=== PATIENT | female | born 1990 | race African-American/Black ===

== ENCOUNTER 2017-07-05 12:34 | Emergency (ER) | payer OTHER ==
[2017-07-05 12:49] VITALS: TEMP 98.1; BMI 34.0
--- NOTE | 2017-07-05 13:28 | PDOC ---
History of Present Illness - General Chief Complaint: Rectal Bleed Stated Complaint: RECTAL BLEED Time Seen by Provider: 07/05/17 13:12 History Source: Patient Exam Limitations: No Limitations - History of Present Illness Initial Comments: 07/05/17 13:23 Patient is a [27-year-old female, no significant medical history currently on no medication. Presents after having a mucous bowel movement this morning with dark streaks which appeared to be blood. No other incidents after. No blood in toilet or on paper. Patient denies any abdominal pain, no vaginal discharge or cramping. Denies any urinary symptoms. No nausea or vomiting.] Past Medical History: [Denies]. Allergies: No known allergies Medications: [none] Family History: Non-contributory Social History: Denies smoking, alcohol use, or IVDU Review of Systems GENERAL/CONSTITUTIONAL: [No fever or chills. No weakness. No weight change.] HEAD, EYES, EARS, NOSE AND THROAT: [No change in vision. No ear pain or discharge. No sore throat. ] CARDIOVASCULAR: [No chest pain or shortness of breath.] RESPIRATORY: [No cough, wheezing, or hemoptysis.] GASTROINTESTINAL: [No nausea, vomiting, diarrhea or constipation. No rectal bleeding. Mucous stool today] GENITOURINARY: [No dysuria, frequency, or change in urination.] MUSCULOSKELETAL: [No joint or muscle swelling or pain. No neck or back pain.] SKIN AND BREASTS: [No rash or easy bruising.] NEUROLOGIC: [No headache, vertigo, loss of consciousness, or loss of sensation.] PSYCHIATRIC: [No depression or anxiety.] ENDOCRINE: [No increased thirst. No abnormal weight change.] HEMATOLOGIC/LYMPHATIC: [No anemia, easy bleeding, or history of blood clots.] ALLERGIC/IMMUNOLOGIC: [No hives or skin allergy. No latex allergy.] Physical Exam: GENERAL: [The patient is awake, alert, and fully oriented, in no acute distress. ] HEAD: [Normal with no signs of trauma.] EYES: [Pupils equal, round and reactive to light, extraocular movements intact, sclera anicteric, conjunctiva clear.] ENT: [Ears normal, nares patent, oropharynx clear without exudates. Moist mucous membranes. No uvula deviation] NECK: [Normal range of motion, supple without lymphadenopathy, JVD, or masses.] LUNGS: [Breath sounds equal, clear to auscultation bilaterally. No wheezes, and no crackles.] HEART: [Regular rate and rhythm, normal S1 and S2 without murmur, rub or gallop. ] ABDOMEN: [Soft, nontender, normoactive bowel sounds. No guarding, no rebound. No masses. No bruising or abrasions] RECTAL : [Guaiac negative, normal rectal tone.] MUSCULOSKELETAL: [Normal range of motion, no edema. No clubbing or cyanosis. No cords, erythema, or tenderness. No CVA Tenderness with fist.] NEUROLOGICAL: [Cranial nerves II through XII grossly intact. Normal speech, normal gait.] PSYCH: [Normal mood, normal affect.] SKIN: [Warm, Dry, normal turgor, no rashes or lesions noted.] Past History - Past Medical History Allergies/Adverse Reactions: Allergies Allergy/AdvReac Type Severity Reaction Status Date / Time Penicillins Allergy Verified 07/05/17 12:38 Home Medications: Ambulatory Orders No Home Medications 0 dose .ROUTE UTDICT 10/09/13 CVA: No COPD: No DVT: No - Immunization History Immunization Up to Date: Yes - Suicide/Smoking/Psychosocial Hx Smoking History: Never smoked Have you smoked in the past 12 months: No Number of Cigarettes Smoked Daily: 0 Information on smoking cessation initiated: No Hx Alcohol Use: No Drug/Substance Use Hx: No Substance Use Type: None *Physical Exam - Vital Signs Last Vital Signs Temp Pulse Resp BP Pulse Ox 98.1 F 85 15 0/0 100 07/05/17 12:38 07/05/17 12:38 07/05/17 12:38 07/05/17 12:38 07/05/17 12:38 Medical Decision Making - Medical Decision Making 07/05/17 14:23 A/P: Patient with one mucous bowel movement today with what appeared to be blood streaks, was no blood on the paper blood noted in the toilet. Guaiac was sent and negative. Bill states that she had fast food chicken two days prior and had diarrhea after. Stool is negative, will DC patient home to follow up with GI . If any abdominal pain, nausea or vomiting or other concerns return to the ER. *DC/Admit/Observation/Transfer Diagnosis at time of Disposition: Mucus in stool - Discharge Dispostion Disposition: HOME Condition at time of disposition: Stable Admit: No - Referrals Referrals: Stevenson Olivas MD [Primary Care Provider] - Sterling Vasquez MD [Staff Physician] - - Patient Instructions Additional Instructions: If any abdominal pain, vomiting, or any other concerns return to ER Recommend follow-up with Dr. Vasquez if second episode - Post Discharge Activity Forms/Work/School Notes: Back to Work
[2017-07-05 13:34] VITALS: BP 122/76; PULSE 72
== END 2017-07-05 14:32 | disposition home or self-care (01) ==
LOC: JERFT 12:34
DX: R19.5 Other fecal abnormalities (principal)
CPT/HCPCS: 36415; 82272; 99281-25

== ENCOUNTER 2022-08-22 13:12 | Emergency (ER) | payer OTHER ==
[2022-08-22 13:20] VITALS: BP 120/75; PULSE 74; RESP 18; TEMP 98.4; BMI 35.9
== END 2022-08-22 15:21 | disposition home or self-care (01) ==
LOC: JERFT 13:12 → JER 13:12 → JERFT 15:21
PROC: 0X943ZZ Drainage of Right Axilla, Percutaneous Approach (ICD-10-PCS; principal; 2022-08-22)
DX: L02.411 Cutaneous abscess of right axilla (principal)
CPT/HCPCS: 99282-25